=== PATIENT | female | born 1945 | race Caucasian/White ===

== ENCOUNTER 2023-06-04 15:08 | Inpatient (IN) ==
[2023-06-04] MEDS ORDERED: NS 500 ML IV 500 ML IV ONE ×2 (15:38→15:42)
--- NOTE | 2023-06-04 15:40 | ED.ABDFE ---
HPI Time Seen Time Seen by Provider: 06/04/23 15:37 PCP Primary Care Physician: GIGI [facility] Chief Complaint Comments: 78 y/o female presents for evaluation. Had gradual onset of abdominal pain yesterday. Has persisted and worsened. Pain localized around the periumbilical region, does not radiate. Is dull, constant, worse with moving. Nothing makes it better. Associated with some nausea, no vomiting. Bowels normally yesterday. Denies any urinary issues. Only abdominal surgery was a hysterectomy. Has a distant history of small bowel obstruction and diverticulitis in the past. No known fever, chills, URI symptoms. Chief Complaint:: PATIENT C/O UMBILICAL ABD PAIN THAT STARTED YESTERDAY THAT HAS BEEN A CONSTANT CRAMPING PAIN. PATIENT IS NOTED TO BE NAUSEATED, BUT DENIES VOITING OR DIARRHEA. LAST BM WAS YESTERDY AND NORMAL. COVID-19 Coronavirus risk:travel/contact w/high risk person: No Has patient experienced Coronavirus symptoms: No Reviewed Nurses Notes Review: Yes Source History Provided: Patient Mode of arrival Mode of Arrival: Ambulatory Timing Onset of Chief Complaint: 06/03/23 PMH PMH Past Medical History: Yes Past Medical History: Anemia, Dyslipidemia, GERD, Hypertension and PUD Past Medical History Comment: BOWEL OBSTRUCTION Past Surgical History: Yes Surgical History: Hysterectomy Family History History of Family Medical Conditions: Yes Family Medical History: Diabetes Mellitus, [place], Coronary Artery Disease and Sudden Cardiac Social History Does patient currently use any type of tobacco product: No Does any household member use tobacco: No Alcohol Use: None Do you use any recreational Drugs:: No Lives With: Spouse Lives Where: Home Travel Risk Coronavirus risk:travel/contact w/high risk person: No Has patient experienced Coronavirus symptoms: No Infectious screening In the last 2 months have you had wt loss of >10#?: NO Have you had fever, night sweats or hemotysis?: No Have you traveled outside the country in the last 6 months?: No Isolation: Standard ROS Review of Systems Constitutional: No Symptoms Reported Eyes: No Symptoms Reported ENTM: No Symptoms Reported Respiratoy: No Symptoms Reported Cardiovascular: No Symptoms Reported Gastrointestinal/Abdominal: See HPI Genitourinary: No Symptoms Reported Neurological: No Symptoms Reported Musculoskeletal: No Symptoms Reported Integumentary: No Symptoms Reported All Other Systems: Reviewed and Negative PE Vital Signs Vitals: Vital Signs Temperature 98.6 F Pulse Rate [Left Radial] 84 Pulse Rate 99 Respiratory Rate 18 Respiratory Rate 17 Respiratory Rate 20 Respiratory Rate 20 Blood Pressure [Right Arm] 148/67 Blood Pressure 134/68 O2 Sat by Pulse Oximetry 96 O2 Sat by Pulse Oximetry 100 General General Appearance: Alert and In No Apparent Distress Eyes Eye exam: PERRL and EOMI ENT ENT Exam: Mucous Membranes Moist Neck Neck Exam: Normal Inspection Respiratory Respiratory Exam: Normal Lung Sounds Bilat; negative Accessory Muscle Use or Respiratory Distress Cardiovascular Cardiovascular Exam: Regular Rate, Normal Rhythm and Normal Heart Sounds Abdominal Exam Abdominal Exam: Normal Bowel Sounds, Soft and Tenderness (LLQ/RLQ > LUQ. + guarding, rebound across lower quads, with rebound (LLQ > RLQ). ) Back Back Exam: Normal Inspection Extremeties Extremities Exam: Normal Inspection; negative Edema Neurologic Neurological Exam: Alert, Oriented X3 and CN II-XII Intact; negative Motor Sensory Deficit Skin Skin Exam: Warm and Dry COURSE Treatment Treatment: 78 y/o female with worsening lower abdominal pain since yesterday. Having rebound of the left lower quadrant greater than right lower quadrant. Differential diagnosis includes diverticulitis, appendicitis, partial small b owel obstruction, ischemic bowel. Workup initiated. Patient given IV fluids, IV Toradol/Zofran to start. 1624 -labs show elevated white count at 15,000, otherwise acceptable. To CT of the abdomen pelvis with IV contrast. 0 - CT with changes c/w partial SBO, transition area as 3 months ago, when here last. Discussed with on-call physician, Dr. Khoury, accepts the admission. Discussed with on-call general surgery, Dr. Robles, he will consult. NG tube inserted by the nurses, to low intermittent suction. Patient to remain n.p.o. X-ray for NG tube placement shows the tip under the diaphragm, but needs advancement, advanced by 3-4 cms. ROR Labs Reviewed 06/04/23 15:52 06/04/23 15:52 Laboratory: WBC 15.5 X10^3/uL (3.6-10.0) H 06/04/23 15:52 RBC 4.03 X10^6/uL (3.5-5.4) 06/04/23 15:52 Hgb 12.0 g/dL (12.0-16.0) 06/04/23 15:52 Hct 36.6 % (36.0-47.0) 06/04/23 15:52 MCV 90.9 fL (80.0-100.0) 06/04/23 15:52 MCH 29.9 pg (27.0-34.0) 06/04/23 15:52 MCHC 32.9 g/dL (33.0-35.0) L 06/04/23 15:52 RDW 13.3 % (11.6-16.5) 06/04/23 15:52 Plt Count 301 X10^3/uL (150.0-450.0) 06/04/23 15:52 MPV 7.4 fL (7.4-11.0) 06/04/23 15:52 Neut % (Auto) 86.9 % (42.0-75.0) H 06/04/23 15:52 Lymph % (Auto) 7.8 % (21.0-51.0) L 06/04/23 15:52 [place] % (Auto) 4.5 % (0.0-13.0) 06/04/23 15:52 Eos % (Auto) 0.2 % (0.9-2.9) L 06/04/23 15:52 Baso % (Auto) 0.6 % (0.2-1.0) 06/04/23 15:52 Neut # (Auto) 13.5 x10^3/uL (2.2-4.8) H 06/04/23 15:52 Lymph # (Auto) 1.2 X10^3/uL (1.3-2.9) L 06/04/23 15:52 [place] # (Auto) 0.7 x10^3/uL (0.3-0.8) 06/04/23 15:52 Eos # (Auto) 0.0 x10^3/uL (0.0-0.2) 06/04/23 15:52 Baso # (Auto) 0.1 X10^3/uL (0.0-0.1) 06/04/23 15:52 Absolute Nucleated RBC 0.0 /100WBC 06/04/23 15:52 Sodium 138 mmol/L (136-145) 06/04/23 15:52 Corrected Sodium 139 mmol/L (136-145) 06/04/23 15:52 Potassium 3.8 mmol/L (3.5-5.1) 06/04/23 15:52 Chloride 101 mmol/L (98-107) 06/04/23 15:52 Carbon Dioxide 28.0 mmol/L (21-32) 06/04/23 15:52 BUN 18 mg/dL (7-18) 06/04/23 15:52 Creatinine 1.00 mg/dL (0.55-1.02) 06/04/23 15:52 Est GFR (MDRD) Af Amer > 60 (>60) 06/04/23 15:52 Est GFR (MDRD) Non-Af 57 (>60) L 06/04/23 15:52 Glucose 133 mg/dL (65-99) H 06/04/23 15:52 Lactic Acid 0.8 mmol/L (0.4-2.0) 06/04/23 15:43 Calcium 9.1 mg/dL (8.5-10.1) 06/04/23 15:52 Corrected Calcium TNP 06/04/23 15:52 Total Bilirubin 0.50 mg/dL (0.2-1.0) 06/04/23 15:52 AST 18 Units/L (15-37) 06/04/23 15:52 ALT 23 Units/L (12-78) 06/04/23 15:52 Alkaline Phosphatase 119 Units/L (46-116) H 06/04/23 15:52 Total Protein 7.1 g/dL (6.4-8.2) 06/04/23 15:52 Albumin 3.4 g/dL (3.4-5.0) 06/04/23 15:52 Globulin 3.7 g/dL (2.5-4.5) 06/04/23 15:52 Albumin/Globulin Ratio 0.9 Ratio (1.1-2.1) L 06/04/23 15:52 Lipase 70 Units/L (16-77) 06/04/23 15:52 Specimen Type Clean catch urine 06/04/23 15:46 Urine Color Yellow (YELLOW) 06/04/23 15:46 Urine Appearance Clear (CLEAR) 06/04/23 15:46 Urine pH 6.0 (5.0 - 8.0) 06/04/23 15:46 Ur Specific [place] 1.025 (1.000-1.030) 06/04/23 15:46 Urine Protein 2+ (NEGATIVE) 06/04/23 15:46 Urine Glucose (UA) Negative (NEGATIVE) 06/04/23 15:46 Urine Ketones Negative (NEGATIVE) 06/04/23 15:46 Urine Blood 1+ (NEGATIVE) 06/04/23 15:46 Urine Nitrite Negative (NEGATIVE) 06/04/23 15:46 Urine Bilirubin Negative (NEGATIVE) 06/04/23 15:46 Urine Urobilinogen Normal (NORMAL) 06/04/23 15:46 Ur Leukocyte Esterase Negative (NEGATIVE) 06/04/23 15:46 Urine RBC 0-2 /HPF (0-3) 06/04/23 15:46 Urine WBC 3-5 /HPF (0-5) 06/04/23 15:46 Ur Squamous Epith Cells Rare /HPF (NEGATIVE) 06/04/23 15:46 Urine Bacteria Trace /HPF (NEGATIVE) 06/04/23 15:46 Hyaline Casts Rare /LPF (NEGATIVE) 06/04/23 15:46 Urine Mucus Many /HPF (NEGATIVE) 06/04/23 15:46 Ur Culture Indicated? No/not indicated 06/04/23 15:46 Opioid Opioid Risk Tool Age (Johan box if 16-45): No History of Preadolescent Sexual Abuse: No Total: 0 Total Score Risk Category: Low Risk Copyright: Gus WISEMAN predicting aberrant behaviors Discharge Plan Diagnosis Discharge Problem: Small bowel obstruction due to adhesions Discharge Plan Patient Disposition: 09 ADMITTED INPATIENT Condition: Stable
[2023-06-04 15:57] LABS: BASOPHILS # (AUTO) 0.1 X10^3/uL (0.0-0.1); BASOPHILS % (AUTO) 0.6 % (0.2-1.0); EOSINOPHILS % (AUTO) 0.2 % (0.9-2.9); HEMATOCRIT 36.6 % (36.0-47.0); LYMPHOCYTES # (AUTO) 1.2 X10^3/uL (1.3-2.9); LYMPHOCYTES % (AUTO) 7.8 % (21.0-51.0); MEAN CORPUSCULAR HEMOGLOBIN 29.9 pg (27.0-34.0); MEAN CORPUSCULAR HGB CONC 32.9 g/dL (33.0-35.0); MEAN CORPUSCULAR VOLUME 90.9 fL (80.0-100.0); MEAN PLATELET VOLUME 7.4 fL (7.4-11.0); MONOCYTES # (AUTO) 0.7 x10^3/uL (0.3-0.8); MONOCYTES % (AUTO) 4.5 % (0.0-13.0); NEUTROPHILS # (AUTO) 13.5 x10^3/uL (2.2-4.8); NEUTROPHILS % (AUTO) 86.9 % (42.0-75.0); PLATELET COUNT 301 X10^3/uL (150.0-450.0); RED BLOOD COUNT 4.03 X10^6/uL (3.5-5.4); RED CELL DISTRIBUTION WIDTH 13.3 % (11.6-16.5); WHITE BLOOD COUNT 15.5 X10^3/uL (3.6-10.0)
[2023-06-04] MEDS ORDERED: TORADOL 30 MG VIAL IVP ONE (16:05)
[2023-06-04] MEDS ORDERED: ZOFRAN INJ 4 MG VIAL IVP ONE (16:05)
[2023-06-04 16:08] LABS: BILIRUBIN,URINE NEGATIVE (NEGATIVE); BLOOD/HEMOGLOBIN,URINE 1+ (NEGATIVE); GLUCOSE, URINE NEGATIVE (NEGATIVE); KETONES,URINE NEGATIVE (NEGATIVE); LEUKOCYTE ESTERASE ,URINE NEGATIVE (NEGATIVE); NITRITES,URINE NEGATIVE (NEGATIVE); PROTEIN,URINE 2+ (NEGATIVE); UROBILINOGEN,URINE NORMAL (NORMAL)
[2023-06-04 16:09] LABS: ALANINE AMINOTRANSFERASE 23 Units/L (12-78); ALBUMIN 3.4 g/dL (3.4-5.0); ALKALINE PHOSPHATASE 119 Units/L (46-116); ASPARTATE AMINO TRANSFERASE 18 Units/L (15-37); BLOOD UREA NITROGEN 18 mg/dL (7-18); CALCIUM 9.1 mg/dL (8.5-10.1); CHLORIDE 101 mmol/L (98-107); COR NA(FOR HYPERGLY) 139 mmol/L (136-145); GLUCOSE 133 mg/dL (65-99); LIPASE 70 Units/L (16-77); POTASSIUM 3.8 mmol/L (3.5-5.1); SODIUM 138 mmol/L (136-145); TOTAL PROTEIN 7.1 g/dL (6.4-8.2); eGFR NON BLACK RACES 57 (>60)
[2023-06-04 16:10] LABS: APPEARANCE,URINE CLEAR (CLEAR); COLOR,URINE YELLOW (YELLOW)
[2023-06-04] MEDS ORDERED: TORADOL 30 MG VIAL ONE (16:16)
[2023-06-04] MEDS ORDERED: ZOFRAN INJ 4 MG VIAL ONE (16:17)
[2023-06-04 16:23] LABS: HYALINE CASTS, URINE RARE /LPF (NEGATIVE); RBC,URINE 0-2 /HPF (0-3); SQUAMOUS EPITHELIAL CELL,UR RARE /HPF (NEGATIVE)
[2023-06-04 16:24] LABS: BACTERIA,URINE TRACE /HPF (NEGATIVE)
[2023-06-04] MEDS ORDERED: OMNIPAQUE 350 mg/mL 100 mL BTL 100 ML ONE (16:27)
--- NOTE | 2023-06-04 18:17 | CT ---
EXAM:ABDCMEN/PELVIS WITH CONHISTORY:lower abd pains, rebound pains; htnCOMPARISON:03/03/2023TECHNIQUE:Multip le axial images of the abdomen and pelvis were obtained with 95 mL Omnipaque 350 IV contrast. Oral contrast was not administered. Dose reduction techniques including Automated Exposure Control (AEC) and adjustment of mA and kV were utilized.FINDINGS:The lung bases are unremarkable. No free air.Bones show no lytic or destructive process.The liver, gallbladder, pancreas unremarkable. Spleen has trace adjacent fluid otherwise unremarkable. No hydronephrosis. Small right renal cyst again seen. Cortical scarring right renal lower pole again noted. No perinephric fluid collection.Adrenal glands unremarkable.Abdominal aorta does have vascular calcification, not aneurysmal. No discernible adenopathy.The bowel shows small hiatal hernia. Some of the central small bowel loops are fluid-filled mildly dilated measuring up to 2.8 cm. There is some mild edema in the mesentery adjacent to these bowel loop segments and trace fluid as well. Transitioning occurs in the midline lower abdomen posteriorly on image 62 with small-bowel wall thickening occurring at this site over a moderate segment length but sparing the terminal ileum. This appears identical to the previous study. No pericecal based inflammation. Colonic loops are unremarkable decompressed with scattered colon diverticulosis. No focal collection. No free air.Bladder unremarkable. Prior hysterectomy. Trace pelvic free fluid. No adnexal mass.IMPRESSION:1. Mildly dilated small bowel loops just under 3 cm with mild edema and trace fluid in the adjacent mesentery. Transitioning occurs in the central posterior lower abdomen on image 62. Just distal to the transition site, there is small bowel wall thickening occurring over a short to moderate segment length. This appears almost identical to the previous CT findings. Consider a distal enteritis of inflammatory and/or infectious etiology and subsequent partial obstruction. However, given recurrence at the same location, adhesions and partial small bowel obstruction still considered. No focal collection. No free air..THIS IS AN ELECTRONICALLY VERIFIED FINAL [id number]/04/2023 6:14 PM - Electronically signed by Vladimir Diamond MD
[2023-06-04] MEDS ORDERED: ZOFRAN INJ 4 MG VIAL IVP PRN (19:33)
[2023-06-04] MEDS ORDERED: TORADOL 30 MG VIAL IVP PRN (19:33)
[2023-06-04] MEDS ORDERED: MORPHINE SULFATE INJ 4 MG IVP PRN (19:33)
--- NOTE | 2023-06-04 19:47 | RAD ---
EXAM: CHEST X-RAYHISTORY: NG tube placement verification.TECHNIQUE: AP chest x-ray dated the 01/02/2023 at 7:26 PM.COMPARISON: CXR dated March 03, 2023.FINDINGS:There is interval placement of a nasogastric tube with the distal tip approximately 1.5 cm distal to the gastroesophageal junction, and the proximal sidehole within the distal esophagus (approximately 6 cm above the gastroesophageal junction). Recommend further advancement of his stomach.The heart size and mediastinum are within normal limits. The lung reyes and costophrenic angles are clear. There is no acute parenchymal infiltrate, pleural effusion, or pneumothorax seen. The visualized bony structures are within normal limits.IMPRESSION:1. No evidence for acute cardiopulmonary disease seen.2. No evidence for acute tuberculosis or other communicable diseases.3. Interval placement of a nasogastric tube with the distal tip approximately 1.5 cm distal to the gastroesophageal junction, and the proximal sidehole within the distal esophagus (approximately 6 cm above the gastroesophageal junction). Recommend further advancement of his stomach.THIS IS AN ELECTRONICALLY VERIFIED FINAL [id number]/04/2023 7:44 PM - Electronically signed by Pauly White
[2023-06-04] MEDS: D5 1/2 NS 1,000 ML 1,000 ML IV SCH (21:11)
[2023-06-04 21:39] VITALS: BMI 23.3
[2023-06-04 22:22] VITALS: RESP 18
--- NOTE | 2023-06-05 00:20 | RAD ---
EXAM:CHEST, 1 VIEWHISTORY:NG TUBE ADVANCEMENT;COMPARISON:Chest one view performed earlier today.FINDINGS:SUPPORT DEVICES: The NG tube has been slightly advanced with the tip projecting over the gastric fundus. The side-hole of the tube projects over the distal 3rd of the esophagus.HEART/MEDIASTINUM: Stable.LUNGS: No significant pulmonary abnormality. No significant pleural effusion. No pneumothorax.ADDITIONAL FINDINGS: None.IMPRESSION:Slight advancement of the NG tube as above. No acute abnormality of the chest.THIS IS AN ELECTRONICALLY VERIFIED FINAL [id number]/05/2023 12:17 AM - Electronically signed by Sharif Peterson MD
[2023-06-05] MEDS: D5 1/2 NS 1,000 ML 1,000 ML IV SCH ×4 (04:12→20:56)
[2023-06-05 05:52] LABS: BASOPHILS % (AUTO) 0.2 % (0.2-1.0); EOSINOPHILS # (AUTO) 0.1 x10^3/uL (0.0-0.2); EOSINOPHILS % (AUTO) 0.9 % (0.9-2.9); HEMATOCRIT 31.2 % (36.0-47.0); HEMOGLOBIN 10.3 g/dL (12.0-16.0); LYMPHOCYTES # (AUTO) 0.9 X10^3/uL (1.3-2.9); LYMPHOCYTES % (AUTO) 8.5 % (21.0-51.0); MEAN CORPUSCULAR HEMOGLOBIN 30.3 pg (27.0-34.0); MEAN CORPUSCULAR HGB CONC 33.1 g/dL (33.0-35.0); MEAN CORPUSCULAR VOLUME 91.4 fL (80.0-100.0); MEAN PLATELET VOLUME 7.8 fL (7.4-11.0); MONOCYTES # (AUTO) 0.7 x10^3/uL (0.3-0.8); NEUTROPHILS # (AUTO) 8.6 x10^3/uL (2.2-4.8); NEUTROPHILS % (AUTO) 83.4 % (42.0-75.0); PLATELET COUNT 258 X10^3/uL (150.0-450.0); RED BLOOD COUNT 3.42 X10^6/uL (3.5-5.4); RED CELL DISTRIBUTION WIDTH 13.2 % (11.6-16.5); WHITE BLOOD COUNT 10.4 X10^3/uL (3.6-10.0)
[2023-06-05 06:10] LABS: ALANINE AMINOTRANSFERASE 17 Units/L (12-78); ALBUMIN 2.6 g/dL (3.4-5.0); ALKALINE PHOSPHATASE 95 Units/L (46-116); ASPARTATE AMINO TRANSFERASE 16 Units/L (15-37); BLOOD UREA NITROGEN 14 mg/dL (7-18); CALCIUM 8.5 mg/dL (8.5-10.1); CARBON DIOXIDE 26.2 mmol/L (21-32); CHLORIDE 105 mmol/L (98-107); COR CA(FOR HYPOALB) 9.6 mg/dL (8.5-10.1); CREATININE 0.81 mg/dL (0.55-1.02); GLUCOSE 103 mg/dL (65-99); POTASSIUM 3.5 mmol/L (3.5-5.1); SODIUM 138 mmol/L (136-145); TOTAL PROTEIN 5.8 g/dL (6.4-8.2); eGFR NON BLACK RACES > 60 (>60)
[2023-06-05] MEDS ORDERED: CONSULT PHARMACY - POTASSIUM & MAGNESIUM XX SCH (07:00)
--- NOTE | 2023-06-05 08:16 | RAD ---
EXAM:KUBHISTORY:SBOCOMPARISON: CT abdomen 06/04/2023FINDINGS:There are multiple segments of dilated small bowel in the central lower abdomen. Gas is present in the right colon. No mass formation, ascites or calcification noted. Contrast material is noted in the urinary bladder.IMPRESSION:Selective small-bowel dilatation consistent with ileus or partial SBO.THIS IS AN ELECTRONICALLY VERIFIED FINAL [id number]/05/2023 8:05 AM - Electronically signed by Ferny Pritchett MD
[2023-06-05] MEDS ORDERED: K-DUR TAB 20 MEQ PO SCH (09:00)
[2023-06-05] MEDS: K-RIDER 10 MEQ/NS 100 ML 10 MEQ/100 ML BAG IV SCH ×2 (09:52→10:58)
[2023-06-05] MEDS: PROTONIX INJ 40 MG VIAL IVP SCH (09:52)
--- NOTE | 2023-06-05 10:15 | DR.PROGNOT ---
HOSPITAL PROGRESS NOTE Progress Note for Day of: Progress Note Date: 06/05/23 Chief Complaint Chief Complaint: Patient is feeling better today with less abdominal pain, no nausea or vomiting, no drainage through NG tube. WBC and electrolytes as well as BUN/creatinine are normal. KUB showed ileus versus partial small bowel obstruction. Patient is afebrile.. Past Medical Family Social History Allergies: Allergies No Known Allergies Allergy (Verified 03/17/23 15:49) Vital Signs Vital Signs: Vital Signs Temperature 98.2 F Temperature 98.1 F Pulse Rate [Left Radial] 74 Pulse Rate [Left Radial] 73 Respiratory Rate 18 Respiratory Rate 18 Blood Pressure [Right Arm] 150/69 Blood Pressure [Right Arm] 137/65 O2 Sat by Pulse Oximetry 96 O2 Sat by Pulse Oximetry 98 Physical Exam Oriented: Normal Eyes: Normal Nose: Normal Respiratory: Normal Cardiovascular: Normal GI:Auscultation: Normal GI: Tenderness: Normal and Other (Soft nontender abdomen with mild distention, bowel sounds are present.) Speech Pattern: Clear and Appropriate Laboratory and Diagnostics 06/05/23 05:06 06/05/23 05:06 Labs: Laboratory WBC 10.4 X10^3/uL (3.6-10.0) H 06/05/23 05:06 RBC 3.42 X10^6/uL (3.5-5.4) L 06/05/23 05:06 Hgb 10.3 g/dL (12.0-16.0) L 06/05/23 05:06 Hct 31.2 % (36.0-47.0) L 06/05/23 05:06 MCV 91.4 fL (80.0-100.0) 06/05/23 05:06 MCH 30.3 pg (27.0-34.0) 06/05/23 05:06 MCHC 33.1 g/dL (33.0-35.0) 06/05/23 05:06 RDW 13.2 % (11.6-16.5) 06/05/23 05:06 Plt Count 258 X10^3/uL (150.0-450.0) 06/05/23 05:06 MPV 7.8 fL (7.4-11.0) 06/05/23 05:06 Neut % (Auto) 83.4 % (42.0-75.0) H 06/05/23 05:06 Lymph % (Auto) 8.5 % (21.0-51.0) L 06/05/23 05:06 [place] % (Auto) 7.0 % (0.0-13.0) 06/05/23 05:06 Eos % (Auto) 0.9 % (0.9-2.9) 06/05/23 05:06 Baso % (Auto) 0.2 % (0.2-1.0) 06/05/23 05:06 Neut # (Auto) 8.6 x10^3/uL (2.2-4.8) H 06/05/23 05:06 Lymph # (Auto) 0.9 X10^3/uL (1.3-2.9) L 06/05/23 05:06 [place] # (Auto) 0.7 x10^3/uL (0.3-0.8) 06/05/23 05:06 Eos # (Auto) 0.1 x10^3/uL (0.0-0.2) 06/05/23 05:06 Baso # (Auto) 0.0 X10^3/uL (0.0-0.1) 06/05/23 05:06 Absolute Nucleated RBC 0.1 /100WBC 06/05/23 05:06 Sodium 138 mmol/L (136-145) 06/05/23 05:06 Corrected Sodium TNP 06/05/23 05:06 Potassium 3.5 mmol/L (3.5-5.1) 06/05/23 05:06 Chloride 105 mmol/L (98-107) 06/05/23 05:06 Carbon Dioxide 26.2 mmol/L (21-32) 06/05/23 05:06 BUN 14 mg/dL (7-18) 06/05/23 05:06 Creatinine 0.81 mg/dL (0.55-1.02) 06/05/23 05:06 Est GFR (MDRD) Af Amer > 60 (>60) 06/05/23 05:06 Est GFR (MDRD) Non-Af > 60 (>60) 06/05/23 05:06 Glucose 103 mg/dL (65-99) H 06/05/23 05:06 Lactic Acid 0.8 mmol/L (0.4-2.0) 06/04/23 15:43 Calcium 8.5 mg/dL (8.5-10.1) 06/05/23 05:06 Corrected Calcium 9.6 mg/dL (8.5-10.1) 06/05/23 05:06 Magnesium 2.0 mg/dL (2.0-2.9) 06/05/23 05:06 Total Bilirubin 0.30 mg/dL (0.2-1.0) 06/05/23 05:06 AST 16 Units/L (15-37) 06/05/23 05:06 ALT 17 Units/L (12-78) 06/05/23 05:06 Alkaline Phosphatase 95 Units/L (46-116) 06/05/23 05:06 Total Protein 5.8 g/dL (6.4-8.2) L 06/05/23 05:06 Albumin 2.6 g/dL (3.4-5.0) L 06/05/23 05:06 Globulin 3.2 g/dL (2.5-4.5) 06/05/23 05:06 Albumin/Globulin Ratio 0.8 Ratio (1.1-2.1) L 06/05/23 05:06 Lipase 70 Units/L (16-77) 06/04/23 15:52 Specimen Type Clean catch urine 06/04/23 15:46 Urine Color Yellow (YELLOW) 06/04/23 15:46 Urine Appearance Clear (CLEAR) 06/04/23 15:46 Urine pH 6.0 (5.0 - 8.0) 06/04/23 15:46 Ur Specific [place] 1.025 (1.000-1.030) 06/04/23 15:46 Urine Protein 2+ (NEGATIVE) 06/04/23 15:46 Urine Glucose (UA) Negative (NEGATIVE) 06/04/23 15:46 Urine Ketones Negative (NEGATIVE) 06/04/23 15:46 Urine Blood 1+ (NEGATIVE) 06/04/23 15:46 Urine Nitrite Negative (NEGATIVE) 06/04/23 15:46 Urine Bilirubin Negative (NEGATIVE) 06/04/23 15:46 Urine Urobilinogen Normal (NORMAL) 06/04/23 15:46 Ur Leukocyte Esterase Negative (NEGATIVE) 06/04/23 15:46 Urine RBC 0-2 /HPF (0-3) 06/04/23 15:46 Urine WBC 3-5 /HPF (0-5) 06/04/23 15:46 Ur Squamous Epith Cells Rare /HPF (NEGATIVE) 06/04/23 15:46 Urine Bacteria Trace /HPF (NEGATIVE) 06/04/23 15:46 Hyaline Casts Rare /LPF (NEGATIVE) 06/04/23 15:46 Urine Mucus Many /HPF (NEGATIVE) 06/04/23 15:46 Ur Culture Indicated? No/not indicated 06/04/23 15:46 Assessment and Plan 1: Improving recurrent partial small bowel obstruction. Abdominal adhesions. To DC NG tube and start on clear liquid. Problem Patient Problems: Patient Problems (Updated 06/04/23 @ 20:03 by Simon Partida) Small bowel obstruction due to adhesions (Acute) K56.50 Subsided small bowel obstruction secondary to abdominal adhesions
[2023-06-06] MEDS: D5 1/2 NS 1,000 ML 1,000 ML IV SCH (04:13)
[2023-06-06 06:24] LABS: BASOPHILS % (AUTO) 0.3 % (0.2-1.0); EOSINOPHILS # (AUTO) 0.1 x10^3/uL (0.0-0.2); EOSINOPHILS % (AUTO) 1.6 % (0.9-2.9); HEMATOCRIT 32.3 % (36.0-47.0); HEMOGLOBIN 10.9 g/dL (12.0-16.0); MEAN CORPUSCULAR HEMOGLOBIN 30.7 pg (27.0-34.0); MEAN CORPUSCULAR HGB CONC 33.9 g/dL (33.0-35.0); MEAN CORPUSCULAR VOLUME 90.7 fL (80.0-100.0); MEAN PLATELET VOLUME 7.6 fL (7.4-11.0); MONOCYTES # (AUTO) 0.4 x10^3/uL (0.3-0.8); MONOCYTES % (AUTO) 5.7 % (0.0-13.0); NEUTROPHILS # (AUTO) 5.6 x10^3/uL (2.2-4.8); NEUTROPHILS % (AUTO) 78.4 % (42.0-75.0); PLATELET COUNT 252 X10^3/uL (150.0-450.0); RED BLOOD COUNT 3.56 X10^6/uL (3.5-5.4); RED CELL DISTRIBUTION WIDTH 13.1 % (11.6-16.5); WHITE BLOOD COUNT 7.2 X10^3/uL (3.6-10.0)
[2023-06-06 06:37] LABS: ALANINE AMINOTRANSFERASE 18 Units/L (12-78); ALBUMIN 2.6 g/dL (3.4-5.0); ALKALINE PHOSPHATASE 99 Units/L (46-116); ASPARTATE AMINO TRANSFERASE 16 Units/L (15-37); BLOOD UREA NITROGEN 6 mg/dL (7-18); CALCIUM 8.6 mg/dL (8.5-10.1); CARBON DIOXIDE 27.7 mmol/L (21-32); CHLORIDE 105 mmol/L (98-107); COR CA(FOR HYPOALB) 9.7 mg/dL (8.5-10.1); CREATININE 0.73 mg/dL (0.55-1.02); GLUCOSE 106 mg/dL (65-99); POTASSIUM 3.7 mmol/L (3.5-5.1); SODIUM 139 mmol/L (136-145); eGFR NON BLACK RACES > 60 (>60)
[2023-06-06 08:22] VITALS: PULSE 83; TEMP 97.6; O2SAT 98
[2023-06-06] MEDS: PROTONIX INJ 40 MG VIAL IVP SCH (08:23)
--- NOTE | 2023-06-06 09:08 | RAD ---
EXAM:KUBHISTORY:Possible SBOCOMPARISON:06/05/2023FINDINGS:There is minimal dilatation of scattered segments of small and large bowel. The appearance is improved without evidence for significant bowel obstruction. No developing mass or ascites is noted.The previously present opacification of the urinary bladder is no longer seen.There is interval appearance of contrast opacification of the gallbladder.IMPRESSION:1. Interval improvement in the intestinal distention. The appearance does not now suggest significant obstruction.2. Interval development opacification of the gallbladder. This probably represents "vicarious opacification" of the gallbladder following IV contrast. This is frequently a normal finding although it may be associated with unilateral renal pathology.THIS IS AN ELECTRONICALLY VERIFIED FINAL REPORT06/06/2023 9:05 AM - Electronically signed by Ferny Pritchett MD
--- NOTE | 2023-06-06 13:03 | DR.H&P ---
H&P History & Physical for Day of: H&P Date: 06/04/23 Chief Complaint Chief Complaint: abdominal pain Allergies Allergies Allergy/AdvReac Type Severity Reaction Status Date / Time No Known Allergies Allergy Verified 03/17/23 15:49 History of Present Illness History of Present Illness: 78 y/o female, ER admission after she presents for evaluation. Had gradual onset of abdominal pain yesterday. Has persisted and worsened. Pain localized around the periumbilical region, does not radiate. Is dull, constant, worse with moving. Nothing makes it better. Associated with some nausea, no vomiting. Bowels normally yesterday. Denies any urinary issues. Only abdominal surgery was a hysterectomy. Has a distant history of small bowel obstruction and diverticulitis in the past. No known fever, chills, URI symptoms. Past Medical History Past Medical History: Anemia, Dyslipidemia, GERD, Hypertension and PUD Past Surgical History Surgical History: Hysterectomy Family History Family Medical History: Diabetes Mellitus, [place], Coronary Artery Disease and Sudden Cardiac Social History Does patient currently use any type of tobacco product: No Have you used tobacco products in the last 12 months: No Type of Tobacco Use: None Does any household member use tobacco: No Alcohol Use: None Drug Use: None Medications Home Medications: Home Medications Medication Instructions Recorded Confirmed Type amlodipine 10 mg tablet 10 mg PO QDAY blood pressure 03/03/23 06/05/23 History pantoprazole 40 mg tablet,delayed 40 mg PO BID 03/03/23 06/05/23 History release pravastatin 20 mg tablet 20 mg PO HS cholesterol 03/03/23 06/05/23 History methocarbamol 500 mg tablet 500 mg PO QPM cramps 06/05/23 06/05/23 History Labs 06/06/23 05:40 06/06/23 05:40 Labs: Laboratory WBC 7.2 X10^3/uL (3.6-10.0) 06/06/23 05:40 RBC 3.56 X10^6/uL (3.5-5.4) 06/06/23 05:40 Hgb 10.9 g/dL (12.0-16.0) L 06/06/23 05:40 Hct 32.3 % (36.0-47.0) L 06/06/23 05:40 MCV 90.7 fL (80.0-100.0) 06/06/23 05:40 MCH 30.7 pg (27.0-34.0) 06/06/23 05:40 MCHC 33.9 g/dL (33.0-35.0) 06/06/23 05:40 RDW 13.1 % (11.6-16.5) 06/06/23 05:40 Plt Count 252 X10^3/uL (150.0-450.0) 06/06/23 05:40 MPV 7.6 fL (7.4-11.0) 06/06/23 05:40 Neut % (Auto) 78.4 % (42.0-75.0) H 06/06/23 05:40 Lymph % (Auto) 14.0 % (21.0-51.0) L 06/06/23 05:40 [place] % (Auto) 5.7 % (0.0-13.0) 06/06/23 05:40 Eos % (Auto) 1.6 % (0.9-2.9) 06/06/23 05:40 Baso % (Auto) 0.3 % (0.2-1.0) 06/06/23 05:40 Neut # (Auto) 5.6 x10^3/uL (2.2-4.8) H 06/06/23 05:40 Lymph # (Auto) 1.0 X10^3/uL (1.3-2.9) L 06/06/23 05:40 [place] # (Auto) 0.4 x10^3/uL (0.3-0.8) 06/06/23 05:40 Eos # (Auto) 0.1 x10^3/uL (0.0-0.2) 06/06/23 05:40 Baso # (Auto) 0.0 X10^3/uL (0.0-0.1) 06/06/23 05:40 Absolute Nucleated RBC 0.1 /100WBC 06/06/23 05:40 Sodium 139 mmol/L (136-145) 06/06/23 05:40 Corrected Sodium TNP 06/06/23 05:40 Potassium 3.7 mmol/L (3.5-5.1) 06/06/23 05:40 Chloride 105 mmol/L (98-107) 06/06/23 05:40 Carbon Dioxide 27.7 mmol/L (21-32) 06/06/23 05:40 BUN 6 mg/dL (7-18) L 06/06/23 05:40 Creatinine 0.73 mg/dL (0.55-1.02) 06/06/23 05:40 Est GFR (MDRD) Af Amer > 60 (>60) 06/06/23 05:40 Est GFR (MDRD) Non-Af > 60 (>60) 06/06/23 05:40 Glucose 106 mg/dL (65-99) H 06/06/23 05:40 Lactic Acid 0.8 mmol/L (0.4-2.0) 06/04/23 15:43 Calcium 8.6 mg/dL (8.5-10.1) 06/06/23 05:40 Corrected Calcium 9.7 mg/dL (8.5-10.1) 06/06/23 05:40 Magnesium 2.0 mg/dL (2.0-2.9) 06/05/23 05:06 Total Bilirubin 0.30 mg/dL (0.2-1.0) 06/06/23 05:40 AST 16 Units/L (15-37) 06/06/23 05:40 ALT 18 Units/L (12-78) 06/06/23 05:40 Alkaline Phosphatase 99 Units/L (46-116) 06/06/23 05:40 Total Protein 6.0 g/dL (6.4-8.2) L 06/06/23 05:40 Albumin 2.6 g/dL (3.4-5.0) L 06/06/23 05:40 Globulin 3.4 g/dL (2.5-4.5) 06/06/23 05:40 Albumin/Globulin Ratio 0.8 Ratio (1.1-2.1) L 06/06/23 05:40 Lipase 70 Units/L (16-77) 06/04/23 15:52 Specimen Type Clean catch urine 06/04/23 15:46 Urine Color Yellow (YELLOW) 06/04/23 15:46 Urine Appearance Clear (CLEAR) 06/04/23 15:46 Urine pH 6.0 (5.0 - 8.0) 06/04/23 15:46 Ur Specific [place] 1.025 (1.000-1.030) 06/04/23 15:46 Urine Protein 2+ (NEGATIVE) 06/04/23 15:46 Urine Glucose (UA) Negative (NEGATIVE) 06/04/23 15:46 Urine Ketones Negative (NEGATIVE) 06/04/23 15:46 Urine Blood 1+ (NEGATIVE) 06/04/23 15:46 Urine Nitrite Negative (NEGATIVE) 06/04/23 15:46 Urine Bilirubin Negative (NEGATIVE) 06/04/23 15:46 Urine Urobilinogen Normal (NORMAL) 06/04/23 15:46 Ur Leukocyte Esterase Negative (NEGATIVE) 06/04/23 15:46 Urine RBC 0-2 /HPF (0-3) 06/04/23 15:46 Urine WBC 3-5 /HPF (0-5) 06/04/23 15:46 Ur Squamous Epith Cells Rare /HPF (NEGATIVE) 06/04/23 15:46 Urine Bacteria Trace /HPF (NEGATIVE) 06/04/23 15:46 Hyaline Casts Rare /LPF (NEGATIVE) 06/04/23 15:46 Urine Mucus Many /HPF (NEGATIVE) 06/04/23 15:46 Ur Culture Indicated? No/not indicated 06/04/23 15:46 Review of Systems Constitutional: No Symptoms Reported Eyes: No Symptoms Reported ENT: No Symptoms Reported Respiratory: No Symptoms Reported Cardiovascular: No Symptoms Reported Gastrointestinal: Nausea and Abdominal Pain Genitourinary: No Symptoms Reported Musculoskeletal: No Symptoms Reported Skin: No Symptoms Reported Neurological: No Symptoms Reported Physical Exam Vital Signs: Vital Signs Temperature 97.6 F Pulse Rate [Left Radial] 83 Respiratory Rate 18 Blood Pressure [Right Arm] 182/74 O2 Sat by Pulse Oximetry 98 Oriented: Normal Eyes: Normal Ear: Normal Nose: Normal Throat: Normal Respiratory: Clear Throughout Cardiovascular: Normal : Normal Auscultation: Bowel Sounds: Decreased Palpation: Normal Tenderness: Diffuse and Mild Skin: Normal Musculoskeletal: Normal Psychiatric: Normal Affect: Normal Speech Pattern: Clear and Appropriate Assessment/Plan (1) Small bowel obstruction due to adhesions: Narrative Support Text: ADMIT, CT ABD/PELVIS WITH CONTRAST OBTAINED IN ER IV HYDRATION, PAIN AND NAUSEA CONTROL DR RUIZ CONSULTING Status: Acute (2) Hypokalemia: Status: Acute
[2023-06-06 13:26] VITALS: BP 176/68
== END 2023-06-06 14:50 | disposition home or self-care (01) | DRG 390 ==
LOC: ER 15:08 → MED/SURG 19:17
PROVIDERS: ADMIT Internal Medicine; ATTEND Internal Medicine
DX: K21.9 Gastro-esophageal reflux disease without esophagitis; E87.6 Hypokalemia; E78.5 Hyperlipidemia, unspecified; E87.8 Other disorders of electrolyte and fluid balance, not elsewhere classified; I10 Essential (primary) hypertension; K56.51 Intestinal adhesions [bands], with partial obstruction; Z87.19 Personal history of other diseases of the digestive system; R10.84 Generalized abdominal pain; E86.0 Dehydration